=== PATIENT | female | born 2000 ===

== ENCOUNTER 2023-03-22 05:28 | Inpatient (IN) ==
[2023-03-22] MEDS ORDERED: SODIUM CHLORIDE 0.9% 250 ML IV PRN (05:39)
[2023-03-22] MEDS ORDERED: LACTATED RINGER'S 1,000 ML IV SCH ×3 (05:45→09:31)
[2023-03-22] MEDS ORDERED: CITRIC ACID/SODIUM CITRATE 15 ML UDC PO SCH (06:00)
[2023-03-22] MEDS ORDERED: ceFAZolin 3,000 MG in DEXTROSE 5% 50 ML IV SCH (06:00)
[2023-03-22 06:12] LABS: Appearance Urine Cloudy (Clear); Bacteria Urine Automated 2+ (Negative); Bilirubin Urine Negative (Negative); Blood Urine Negative (Negative); Color Urine Yellow; Epithelial Cell Urine Auto >30 /lpf (0-5); Glucose Urine UA Negative (Negative); Ketones Urine Negative (Negative); Leukocyte Esterase Urine 2+ (Negative); Nitrite Urine Negative (Negative); Protein Urine 1+ (Negative); RBC Urine Automated 0-4 /hpf (0-4); Specific Gravity Urine 1.029 (1.000-1.030); Urobilinogen Urine Negative (Negative); WBC Urine Automated >30 /hpf (0-5)
[2023-03-22 06:27] LABS: Basophils # (auto) 0.02 K/uL (0.00-0.20); Basophils % (auto) 0.2 %; Eosinophils # (auto) 0.06 K/uL (0.00-0.50); Eosinophils % (auto) 0.7 %; Hematocrit (blood only) 28.4 % (37.0-47.0); Immature Granulocytes # (auto) 0.03 K/uL (0.01-0.20); Immature Granulocytes % (auto) 0.4 %; Lymphocytes # (auto) 1.66 K/uL (1.20-3.40); Mean Corpuscular Hemoglobin 25.8 pg (25.0-34.0); Mean Corpuscular Hgb Conc 31.7 g/dL (32.0-36.0); Mean Corpuscular Volume 81.4 fL (80.0-100.0); Mean Platelet Volume 13.5 fL (9.4-12.4); Monocytes # (auto) 0.71 K/uL (0.11-0.59); Monocytes % (auto) 8.5 %; Neutrophils # (auto) 5.83 K/uL (1.40-6.50); Neutrophils % (auto) 70.2 %; Platelet Count 226 K/uL (130-400); RDW Coefficient of Variation 14.2 % (11.5-14.5); RDW Standard Deviation 41.1 fL (36.4-46.3); Red Blood Count 3.49 M/uL (4.20-5.40); White Blood Count 8.31 K/ul (4.8-10.8)
--- NOTE | 2023-03-22 06:53 | History & Physical Report ---
Date of Service March 22, 2023 Assessment & Plan (1) Gestational diabetes mellitus (GDM) affecting , antepartum: Plan: section in a patient with gestational diabetes Admission and Anticipated Discharge Date Admission Date: March 22, 2023 History of Present Illness Primary Care Provider: NO PCP 22 y/o weeks confirmed via LMP MEL:03/28/23 . Here for C/ S . Recent measurement (03/09/2023) of baby 4289g expected to be >4500g now, recommended primary section. Complications with this include Obesity, GDM diet controlled, transfer of care at 33wks. Has been attending OB appointments regularly. Currently taking no medications. GBS neg, Rubella immune, BTG A+ Contractions: none. Fluid or Blood loss: none Movement: active FHR baseline 130, moderate variability, accelerations present, decelerations absent OB Optional Labs: Thyroid Stimulating Hormone (TSH) 1.09 uIU/mL (0.30-4.50) 10/06/22 Labs Reviewed: Initial OB Labs 09/18/22 Blood Type & RH A Positive Antibody Screen negative HCT/HGB 11.8/36.3 10/06/22 Platelets 304 12/07/2022 Hep C IgG 13yrs+ Old non reactive 10/06/2022 Pap Test Chlamydia negative Gonorrhea negative Rubella immune 12/07/22 RPR non reactive 12/07/22 Urine Culture/Screen 09/18/2022 HBsAg Negative 12/07/22 HIV nonreactive 10/06/22 MCV 88.8 10/06/22 Ultrasound 09/18/2022, 01/04/2023 24-28 Week OB Labs12/07/2022 HCT/HGB 32/10.6 Urine Culture/Screen> 100,000 Cfu/mL of enterococuss faecalis. 11/15/31. Macrobid 11/24/22 Diabetes Screen 50g 135mg/dl 01/01/2023 Allergies Allergy/AdvReac Type Severity Reaction Status Date / Time No Known Allergies Allergy Verified 03/22/23 05:40 Home Medications Medication Instructions Recorded Confirmed Type [id number]-[id number]-FA 1 tab PO DAILY 02/06/23 03/22/23 History [] Past Med/Surg History Medical History No known health problems Surgical History No history of previous surgery Family History Other Diabetes Denies family history of Ovarian cancer Prostate cancer Myocardial infarction Breast cancer Colorectal cancer Social History Smoking Status: Never smoker Do You Dip or Chew Tobacco: No; Hx Alcohol Use: No Hx Substance Use: No Preferred Language: Setswana Communication Ability: Effective Professor Of History Required: No Beliefs That Will Affect Care: None marital status: marital status details: Bakari MEEHAN [phone] Current Living Situation: Spouse Current Living Situation Comment: house with current occupational status: employed current occupation: [employer] Other Information That Helps Us Care for You: No Feels Safe at Home: Yes Safety Concerns: Feels Safe At This Time Assistive Devices: None Review of Systems Review of Systems: All systems reviewed & are unremarkable except as noted in HPI & below Physical Exam Physical Exam: General: patient resting comfortably, NAD, non-toxic in appearance, AA&O x 4, answers questions appropriately. Skin: warm, dry, intact HEENT: NC/AT, anicteric sclera, conjunctiva without injection, moist mucus membranes. Heart: +S1/S2, regular, no m/r/g Lungs: equal air entry bilaterally, no rales/rhonchi/wheezes Abd: +BS, soft, NT/ND, uterine fundus firm at umbilicus Ext: warm, no clubbing/cyanosis or edema, Jonathan's neg. Neuro: nonfocal, patient AA&O x 4, speech intact, no facial droop, moving all extremities on command. Results & Data Results & Data Vital Signs (Past 12 Hours) Vital Signs Temp Pulse Resp BP O2 Del Method 03/22/23 05:48 36.4 C L 91 H 18 128/80 03/22/23 05:42 36.4 C L 18 Room Air Resident Activity Tracking Resident Involvement: Resident Care Provided Care Provided: OB Delivery
[2023-03-22] MEDS ORDERED: MoRPHine SULFATE PF 1 MG/ML 10 ML AMP/VIAL ONE (06:55)
[2023-03-22] MEDS ORDERED: ONDANSETRON INJ 2 MG/ML 2 ML VIAL ONE (06:55)
[2023-03-22] MEDS ORDERED: fentaNYL citrate PF 100 MCG/2 ML VIAL ONE (06:55)
[2023-03-22] MEDS ORDERED: PHENYLEPHRINE 100MCG/ML 10ML SYR IV ONE (06:55)
[2023-03-22] MEDS ORDERED: KETOROLAC 30 MG/ML VIAL ONE (06:55)
[2023-03-22] MEDS ORDERED: OXYTOCIN 10 UNITS/ML VIAL ONE (06:55)
--- NOTE | 2023-03-22 07:20 | Anesthesiology Consultation ---
Date of Service March 22, 2023 Assessment & Plan (1) Encounter for pre-operative examination: Chart Review Chart Review: Acceptable Risk for Surgery and Patient NOT seen in Pre Admission Testing Consults Requested none History Surgery Operation Date: 03/22/23 07:30 Proposed Procedures p Section - Heavenly Suarez MD Height/Weight Height: 4 ft 11 in Weight: 102.965 kg Allergies Allergy/AdvReac Type Severity Reaction Status Date / Time No Known Allergies Allergy Verified 03/22/23 05:40 Medications Home Medications Medication Instructions Recorded Confirmed Last Taken uedmqtsg-nll-Ab-FA 1 tab PO DAILY 02/06/23 03/22/23 03/22/23 [] Past Medical History Medical History No known health problems Past Family History Family History Other Diabetes Denies family history of Ovarian cancer Prostate cancer Myocardial infarction Breast cancer Colorectal cancer Past Surgical History Surgical History No history of previous surgery Social History Smoking Status: Never smoker Do You Dip or Chew Tobacco: No Hx Alcohol Use: No Hx Substance Use: No Physical Exam Vital Signs Last Vital Signs Temp 97.5 F L 03/22/23 05:48 Pulse 91 H 03/22/23 05:48 Resp 18 03/22/23 05:48 BP 128/80 03/22/23 05:48 O2 Del Method Room Air 03/22/23 05:42 Testing Laboratory Results 03/22/23 06:07 Urine Color Yellow 03/22/23 05:30 Urine Appearance Cloudy (Clear) A 03/22/23 05:30 Urine pH 6.0 (4.5-7.5) 03/22/23 05:30 Ur Specific [place] 1.029 (1.000-1.030) 03/22/23 05:30 Urine Protein 1+ (Negative) H 03/22/23 05:30 Urine Glucose (UA) Negative (Negative) 03/22/23 05:30 Urine Ketones Negative (Negative) 03/22/23 05:30 Urine Nitrite Negative (Negative) 03/22/23 05:30 Ur Leukocyte Esterase 2+ (Negative) H 03/22/23 05:30 Urine WBC (Auto) >30 /hpf (0-5) H 03/22/23 05:30 Urine RBC (Auto) 0-4 /hpf (0-4) 03/22/23 05:30 U Hyaline Cast (Auto) 5-10 /lpf (0-5) H 03/22/23 05:30 U Epithel Cells (Auto) >30 /lpf (0-5) H 03/22/23 05:30 Urine Bacteria (Auto) 2+ (Negative) H 03/22/23 05:30 Blood Type A Positive 03/22/23 06:07 Antibody Screen NEGATIVE 03/22/23 06:07
[2023-03-22] MEDS ORDERED: HYDROmorphone INJ 0.5 MG/0.5 ML SYR IV PRN (07:21)
[2023-03-22] MEDS ORDERED: PROMETHAZINE HCL 6.25 MG in SODIUM CHLORIDE 0.9% 50 ML IV PRN (07:21)
[2023-03-22] MEDS ORDERED: ePHEDrine sulfate 50 MG/ML AMP IV PRN (07:21)
[2023-03-22] MEDS ORDERED: NALBUPHINE HCL 5 MG in SYRINGE 0 ML IV PRN (07:21)
[2023-03-22] MEDS ORDERED: NALOXONE HCL 0.08 MG in SYRINGE 1.8 ML IV PRN (07:21)
[2023-03-22] MEDS ORDERED: ACETAMINOPHEN 1,000 MG/100 ML VIAL IV PRN (07:21)
[2023-03-22] MEDS ORDERED: LACTATED RINGER'S 500 ML IV PRN (07:21)
[2023-03-22] MEDS ORDERED: diphenhydrAMINE 50 MG/ML VIAL IV PRN (07:21)
[2023-03-22] MEDS ORDERED: NALOXONE HCL 0.4 MG/1 ML VIAL/CARP IV PRN (07:21)
[2023-03-22] MEDS ORDERED: ONDANSETRON INJ 2 MG/ML 2 ML VIAL IV PRN (07:21)
[2023-03-22] MEDS ORDERED: MoRPHine SULFATE PF 1 MG/ML 10 ML AMP/VIAL INT SPINAL ONE (07:21)
[2023-03-22] MEDS ORDERED: NALOXONE HCL 1 MG in SODIUM CHLORIDE 0.9% 1,000 ML IV PRN (07:21)
--- NOTE | 2023-03-22 07:25 | History & Physical Bridge Note ---
Date of Service March 22, 2023 History & Physical Bridge Note I have examined the patient, reviewed the History & Physical and in the interval since the performance of the History & Physical I have noted the following changes of clinical significance: no changes noted
[2023-03-22] MEDS ORDERED: NO NARCOTICS OR SEDATIVES SCH (07:30)
[2023-03-22] MEDS ORDERED: SODIUM CHLORIDE 0.9% 1,000 ML IV SCH (07:30)
[2023-03-22] MEDS ORDERED: ePHEDrine sulfate 50 MG/5 ML SYR ONE (08:03)
--- NOTE | 2023-03-22 08:25 | Operative Report ---
PG Post Operative Report Pre & Post Diagnosis Operation Date: 03/22/23 07:30 Pre-Op Diagnosis: 1. Single intrauterine at term 2. Gestational Diabetes 3. LGA Post-Op Diagnosis: Same I identified the patient and participated in the time-out.: Yes Procedure Operation Date: 03/22/23 07:30 Actual Procedures Primary Lower Uterine Transverse Section Surgeon Heavenly Suarez MD Multi Line Claims Adjuster Agus Estimated Blood Loss 500 Findings Consistent with Post-Op Diagnosis Specimens Placenta, Cord blood Anesthesia Type Spinal Complications none Disposition Accompanied Patient To Recovery: Yes Disposition: L&D Description of Procedure The patient was placed operating table in the supine position with a leftward tilt. She was prepped and draped in standard sterile fashion. The anesthetic was tested and found to be adequate. A time-out was held, identifying correct patient, procedure, positioning and preoperative antibiotics. There were no concerns. A Pfannenstiel skin incision was made with a knife and taken down to the underlying layer of fascia. The fascia was incised in the midline with the knife and taken out laterally with scissors. The superior edge of the fascial incision was grasped, elevated and dissected off the underlying rectus both superiorly and inferiorly. The muscles were bluntly in the midline. The peritoneum was entered bluntly. The incision was then stretched. The bladder retractor was placed. The vesicouterine peritoneum was identified, entered with scissors and taken out laterally with scissors. The bladder flap was created digitally. A hysterotomy incision was created transversely in the lower uterine segment, final entry being accomplished in a blunt manner with the bench assembler operator's fingers. Clear amniotic fluid was encountered. The bench assembler operator's hand was used to elevate the head to the hysterotomy. The head was delivered using mild fundal pressure, and the shoulders and body followed without difficulty. The cord was clamped and cut and the was then handed off to the awaiting clin nurse spec. Cord blood was obtained. The placenta was Manually extracted. The uterus was exteriorized and cleared of all clot and debris with moistened laparotomy sponges. The hysterotomy incision was repaired in two layers, the first in a running locked layer, the second in an imbricating layer. The ovaries and tubes were seen to be normal bilaterally. The uterus was gently replaced in the abdomen, and the gutters were cleared of clot and debris. A final inspection of the hysterotomy revealed good hemostasis. The rectus muscles were allowed to reapproximate naturally. The fascia was then reapproximated with 1 Vicryl in a running nonlocked manner. The fascia was examined and found to be free of defect following closure. The subcutaneous tissue was copiously irrigated and reapproximated with 0-chromic, then the skin edges were closed with 4-0 monocryl in a subcuticular fashion. A dermabond dressing was applied. The wylie was found to be draining clear yellow urine at completion of the procedure. I attest to the content of the Intraoperative Record and any orders documented therein. Any exceptions are noted below. I attest to the content of the Intraoperative Record and any orders documented therein. Any exceptions are noted below. OB Procedure Charges 84784
[2023-03-22] MEDS ORDERED: BENZOCAINE 20% SPRY 85 APPLN/85 GM CAN EXT PRN (09:31)
[2023-03-22] MEDS ORDERED: SENNA 8.6 MG TAB PO PRN (09:31)
[2023-03-22] MEDS ORDERED: HYDROCORTISONE ACETATE 25 MG SUPP PR PRN (09:31)
[2023-03-22] MEDS ORDERED: DIPHTHERIA/TETANUS/PERTUSSIS Vaccine (Tdap, Age 7+yrs) 0.5mL SYR/VL IM ONE (09:31)
[2023-03-22] MEDS ORDERED: MAGNESIUM HYDROXIDE SUSP 30 ML UDC PO PRN (09:31)
[2023-03-22] MEDS: OXYTOCIN 20 UNITS/LR 1,002 ML IV SCH ×2 (10:09→17:02)
--- NOTE | 2023-03-22 10:44 | Anesthesiology Progress Note ---
Date of Service March 22, 2023 Anesthesia Post Procedure Vital Signs Vital Signs: Temp Pulse Resp BP Pulse Ox O2 Del Method 03/22/23 10:40 71 122/70 03/22/23 10:38 74 98 03/22/23 10:33 68 99 03/22/23 10:30 79 128/73 03/22/23 10:28 78 98 03/22/23 10:23 91 H 97 03/22/23 10:21 85 129/78 03/22/23 10:18 68 98 03/22/23 10:13 85 98 03/22/23 10:10 83 131/77 03/22/23 10:08 74 99 03/22/23 10:03 77 98 03/22/23 10:00 96 H 117/67 03/22/23 09:58 79 97 03/22/23 09:53 85 98 03/22/23 09:51 75 121/63 03/22/23 09:48 102 H 98 03/22/23 09:43 69 99 03/22/23 09:41 98 H 123/70 03/22/23 09:38 88 97 03/22/23 09:33 81 98 03/22/23 09:32 176 H 147/61 H 03/22/23 09:31 16 03/22/23 09:28 70 98 03/22/23 09:23 87 98 03/22/23 09:21 16 03/22/23 09:21 90 135/68 03/22/23 09:18 79 98 03/22/23 09:13 93 H 98 03/22/23 09:12 90 149/66 H 03/22/23 09:11 16 03/22/23 09:08 92 H 98 03/22/23 09:03 93 H 97 03/22/23 09:01 20 03/22/23 09:01 89 135/73 03/22/23 08:58 92 H 98 03/22/23 08:53 93 H 98 03/22/23 08:51 16 03/22/23 08:51 95 H 160/86 H 03/22/23 08:48 98 H 98 03/22/23 08:43 85 98 03/22/23 08:40 16 03/22/23 08:40 81 127/69 03/22/23 08:38 73 99 03/22/23 08:33 75 99 03/22/23 08:28 97.5 F L 18 03/22/23 08:28 76 126/65 97 03/22/23 05:48 97.5 F L 91 H 18 128/80 03/22/23 05:42 97.5 F L 18 Room Air Transfer of Care Handoff Completed per policy Notes Mental Status: alert / awake / arousable and participated in evaluation Patient Amnestic to Procedure: Yes Nausea / Vomiting: adequately controlled Pain: adequately controlled Airway Patency, RR, SpO2: stable & adequate BP & HR: stable & adequate Hydration State: stable & adequate Neuraxial Anesthesia: was administered and sensory block is resolving Anesthetic Complications: no major complications apparent and Pt Satisfied with anesthetic care
[2023-03-22] MEDS: SIMETHICONE 80 MG CHEW PO SCH ×3 (13:15→21:27)
[2023-03-22] MEDS: KETOROLAC 30 MG/ML VIAL IV PRN (18:31)
[2023-03-22] MEDS: DOCUSATE SODIUM 100 MG CAP PO SCH (21:27)
[2023-03-23] MEDS: KETOROLAC 30 MG/ML VIAL IV PRN (01:12)
[2023-03-23] MEDS ORDERED: PROMETHAZINE HCL 25 MG in SODIUM CHLORIDE 0.9% 50 ML IV PRN (01:21)
[2023-03-23] MEDS ORDERED: KETOROLAC 30 MG/ML VIAL IV PRN (01:21)
[2023-03-23] MEDS ORDERED: ONDANSETRON INJ 2 MG/ML 2 ML VIAL IV PRN (01:21)
[2023-03-23] MEDS ORDERED: DC INTRASPINAL MORPHINE ONE (01:21)
[2023-03-23] MEDS ORDERED: diphenhydrAMINE Capsule 25 MG CAP PO PRN (01:21)
[2023-03-23] MEDS ORDERED: diphenhydrAMINE 50 MG/ML VIAL IV PRN (01:21)
--- NOTE | 2023-03-23 05:56 | Obstetrical Progress Note ---
Date of Service March 23, 2023 Assessment & Plan (1) Encounter for care and examination after delivery: Plan Pt doing well clinically -Vital signs reviewed and WNL -HGB reviewed -Blood type A+ -Rubella immune -Encourage ambulation -Monitor and control pain with Motrin prn -Monitor lochia -Encourage Admission and Anticipated Discharge Date Admission Date: March 22, 2023 Subjective 22 yo post operative day 1 s/p Ambulation: ambulating normally Voiding: no voiding problems Passing Gas:: Yes Diet Tolerance:: regular diet Lochia:: Small Feeding Type:: Current Pain Level: moderate controlled by pain med Resting comfortably this AM in NAD. Denies TALBOT, CP, SOB, N/V/D, LE pain/swelling. Review of Systems Review of Systems: All systems reviewed & are unremarkable except as noted in HPI & below Physical Exam Physical Exam: General: patient resting comfortably, NAD, non-toxic in appearance, AA&O x 4, answers questions appropriately. Skin: warm, dry, intact HEENT: NC/AT, anicteric sclera, conjunctiva without injection, moist mucus membranes. Heart: +S1/S2, regular, no m/r/g Lungs: equal air entry bilaterally, no rales/rhonchi/wheezes Abd: +BS, soft, NT/ND, uterine fundus firm at umbilicus, wound clean, dry, no bleeding, no erythema Ext: warm, no clubbing/cyanosis or edema, Jonathan's neg. Neuro: nonfocal, patient AA&O x 4, speech intact, no facial droop, moving all extremities on command. Results & Data Vital Signs (Past 12 Hours) Vital Signs Temp Pulse Resp BP Pulse Ox O2 Del Method 03/23/23 04:00 36.9 C 87 16 113/78 96 Room Air 03/23/23 01:15 16 97 03/23/23 00:25 16 97 03/22/23 23:25 15 98 03/22/23 23:12 36.9 C 92 H 18 113/79 98 Room Air 03/22/23 22:25 16 97 03/22/23 21:25 15 97 03/22/23 20:25 16 96 03/22/23 19:25 16 98 03/22/23 18:59 36.5 C 90 20 111/71 95 Room Air Resident Activity Tracking Resident Involvement: Resident Care Provided Care Provided: OB Delivery
[2023-03-23 06:42] LABS: Hematocrit (blood only) 22.6 % (37.0-47.0); Hemoglobin 6.9 g/dl (12.0-16.0)
[2023-03-23] MEDS: DOCUSATE SODIUM 100 MG CAP PO SCH ×2 (08:16→19:40)
[2023-03-23] MEDS: SIMETHICONE 80 MG CHEW PO SCH ×4 (08:16→19:40)
[2023-03-23] MEDS: PRENATAL VITAMIN 1 TAB PO SCH (08:16)
[2023-03-23] MEDS: oxyCODONE/ACETAMINOPHEN 5mg/325mg TAB PO PRN ×4 (08:16→23:50)
[2023-03-23] MEDS: IBUPROFEN 600 MG TAB PO PRN ×4 (08:17→23:50)
[2023-03-23] MEDS: FERROUS SULFATE 325 MG TAB PO SCH (10:03)
[2023-03-23] MEDS ORDERED: bisacodyL 5 MG TABEC PO SCH (20:00)
[2023-03-24] MEDS: oxyCODONE/ACETAMINOPHEN 5mg/325mg TAB PO PRN ×3 (04:37→12:46)
[2023-03-24] MEDS: IBUPROFEN 600 MG TAB PO PRN ×3 (04:38→12:46)
--- NOTE | 2023-03-24 05:45 | Obstetrical Progress Note ---
Date of Service March 24, 2023 Assessment & Plan (1) Encounter for care and examination after delivery: Plan Pt doing well clinically -Vital signs reviewed and WNL -HGB reviewed -Blood type A+ -Rubella immune -Encourage ambulation -Monitor and control pain with Motrin prn -Monitor lochia -Encourage -Discharge home today, instructions discussed Admission and Anticipated Discharge Date Admission Date: March 22, 2023 Supervising Physician Co-Signing Physician Notes Resident Physician Supervision Note: I was present with Dr. Jacky Trejo during the history and exam. I discussed the case with the resident and agree with the findings and plan as documented in the note. Any exceptions or clarifications are listed here: POD#2 doing well. Discussed Hgb - she is feeling well, vitals are stable. Pending today's value, if stable she'd prefer not to have blood transfusion. Anticipate DC home today. Rx Percocet #20 tabs sent to [facility]. Documented By: Suzy Sanabria, DO Subjective 22 yo post operative day 2 s/p Ambulation: ambulating normally Voiding: no voiding problems Passing Gas:: Yes Diet Tolerance:: regular diet Lochia:: Small Feeding Type:: Current Pain Level: moderate controlled by motrin Resting comfortably this AM in NAD. Denies TALBOT, CP, SOB, N/V/D, LE pain/swelling. Review of Systems Review of Systems: All systems reviewed & are unremarkable except as noted in HPI & below Physical Exam Physical Exam: General: patient resting comfortably, NAD, non-toxic in appearance, AA&O x 4, answers questions appropriately. HEENT: NC/AT, anicteric sclera, conjunctiva without injection, moist mucus membranes. Heart: +S1/S2, regular, no m/r/g Lungs: equal air entry bilaterally, no rales/rhonchi/wheezes Abd: +BS, soft, NT/ND, uterine fundus firm at umbilicus, wound clean, dry, no bleeding, no erythema Ext: warm, no clubbing/cyanosis or edema, Jonathan's neg.. Results & Data Vital Signs (Past 12 Hours) Vital Signs Temp Pulse Resp BP Pulse Ox O2 Del Method 03/24/23 00:02 36.6 C 78 20 119/78 98 Room Air 03/23/23 20:02 36.6 C 96 H 20 131/88 98 Room Air Resident Activity Tracking Resident Involvement: Resident Care Provided Care Provided: OB Delivery
[2023-03-24 07:12] LABS: Hematocrit (blood only) 22.8 % (37.0-47.0)
[2023-03-24] MEDS ORDERED: bisacodyL 10 MG SUPP PR PRN (08:12)
[2023-03-24] MEDS: SIMETHICONE 80 MG CHEW PO SCH (08:18)
[2023-03-24] MEDS: FERROUS SULFATE 325 MG TAB PO SCH (08:19)
[2023-03-24] MEDS: DOCUSATE SODIUM 100 MG CAP PO SCH (08:19)
[2023-03-24] MEDS: PRENATAL VITAMIN 1 TAB PO SCH (08:19)
--- NOTE | 2023-03-27 14:51 | Discharge Summary ---
Date of Service March 27, 2023 Admission HPI Per Admitting Provider 22 y/o weeks confirmed via LMP MEL:03/28/23 . Here for C/ S . Recent measurement (03/09/2023) of baby 4289g expected to be >4500g now, recommended primary section. Complications with this include Obesity, GDM diet controlled, transfer of care at 33wks. Has been attending OB appointments regularly. Currently taking no medications. GBS neg, Rubella immune, BTG A+ Contractions: none. Fluid or Blood loss: none Movement: active FHR baseline 130, moderate variability, accelerations present, decelerations absent OB Optional Labs: Thyroid Stimulating Hormone (TSH) 1.09 uIU/mL (0.30-4.50) 10/06/22 Labs Reviewed: Initial OB Labs 09/18/22 Blood Type & RH A Positive Antibody Screen negative HCT/HGB 11.8/36.3 10/06/22 Platelets 304 12/07/2022 Hep C IgG 13yrs+ Old non reactive 10/06/2022 Pap Test Chlamydia negative Gonorrhea negative Rubella immune 12/07/22 RPR non reactive 12/07/22 Urine Culture/Screen 09/18/2022 HBsAg Negative 12/07/22 HIV nonreactive 10/06/22 MCV 88.8 10/06/22 Ultrasound 09/18/2022, 01/04/2023 24-28 Week OB Labs12/07/2022 HCT/HGB 32/10.6 Urine Culture/Screen> 100,000 Cfu/mL of enterococuss faecalis. 11/15/31. Macrobid 11/24/22 Diabetes Screen 50g 135mg/dl 01/01/2023 Discharge Data Consultations 03/22/23 05:36 Consult Anesthesiology Stat Procedures Performed Operation Date: 03/22/23 07:30 Actual Procedures p Section in LD; Primary Lower Uterine Transverse Section for the of a live boy at 0756(Bilateral) - Heavenly Suarez MD Hospital Course (1) Encounter for care and examination after delivery: Plan Pt doing well clinically -Vital signs reviewed and WNL -HGB reviewed -Blood type A+ -Rubella immune -Encourage ambulation -Monitor and control pain with Motrin prn -Monitor lochia -Encourage -Discharge home today, instructions discussed Coding Level of Care Code None Diagnoses Encounter for care and examination after delivery Z39.2
== END 2023-03-24 13:00 | disposition home or self-care (01) | DRG 788 ==
LOC: 4S1 05:28 → 4E2 11:00